=== PATIENT | female | born 1980 | race Caucasian/White ===

== ENCOUNTER 2017-01-28 00:17 | Day surgery (SDC) | payer OTHER ==
[2017-01-28] VITALS (7 sets, daily range): BP systolic 96–121; BP diastolic 54–68; PULSE 50–67; RESP 16; O2SAT 95–96
[~2017-01-28] VITALS: Ht 165.1 cm; Wt 86.0 kg
[~2017-01-28 00:17] MED LIST: ACET-171 PO; BUPR1FIL3 SL; ESTR2TAB2 PO; PEDI1TAB52 PO; VENL75CA95 PO
[2017-01-28] MEDS ORDERED: levoFLOXacin 500 mg/100 mL D5W Premix IV ONE (11:23)
[2017-01-28] MEDS ORDERED: Heparin 5,000 Units/500 mL NS Premix IV ONE (11:27)
[2017-01-28] MEDS ORDERED: levoFLOXacin Inj 500 MG in IV Premix 1 EACH IV SCH (11:32)
[2017-01-28] MEDS ORDERED: fentaNYL-PF 50 mCg/mL 2 mL Inj ONE (11:50)
--- NOTE | 2017-01-28 13:24 | DRSVH ---
PROCEDURE: NEPHROSTOMY TUBE EXCHANGE 1. Right nephrostomy tube replacement. 2. Right antegrade pyelogram. 3. Conscious sedation for 30 minutes. INDICATIONS: OBSTRUCTION TECHNIQUE: The indications, alternatives, benefits, risks, and complications of the procedure were e xplained to the patient and any family members present. Informed written consent was obtained and pl aced in the chart. The patient was brought to the angiography suite. Conscious sedation was adminis tered intravenously by alf staff, with continuous cardiorespiratory monitoring. The patient was placed in the prone position on the angiography table. The back and existing tube wa s prepped and draped in a sterile fashion, with 1% lidocaine used for local anaesthesia. The existing tube was cut at the hub, and another 35 wire was advanced into the renal collecting system. The tube was removed, and a new 8 [place]ian locking pigtail drain was advanced under fluoroscopy into the renal collecting system. The catheter was pigtailed in the renal pelvis and locked. A small amount of cont rast was injected through the nephrostomy catheter. Catheter was secured to the skin surface. The patient was stable during the course of the procedure. FLUOROSCOPY TIME: 0.7 minutes. COMPARISON: [facility], XA, NEPHROSTOMY TUBE EXCHANGE, 09/09/2016, 12:34. FINDINGS: At the conclusion of the procedure, the pigtail catheter is within the renal pelvis. IMPRESSION: Successful replacement of a right nephrostomy tube without complication. Dictated by: Janay Ruiz M.D. on 01/28/2017 at 13:21 Approved by: Janay Ruiz M.D. on 01/28/2017 at 13:23
--- NOTE | 2017-01-28 14:10 | NUR ---
Pt discharged to home, ambulatory, accompanied by spouse. Pt's VSS, Rt nephrostomy tube draining clear yellow urine, IV discontinued intact. Pt given all discharge instructions and had no further questions at time of d/c.
== END 2017-01-28 23:59 | disposition home or self-care (01) ==
LOC: SOUO 00:17
PROVIDERS: ATTEND Radiology Vascular & Interventional Radiology
DX: N13.30 Unspecified hydronephrosis (principal); C53.9 Malignant neoplasm of cervix uteri, unspecified; Z87.440 Personal history of urinary (tract) infections
CPT/HCPCS: 50435; 75984; 99152; C1729; C1769; J1644; J2250; J3010; Q9967

== ENCOUNTER → 2017-06-09 | Day surgery (SDC) | payer MEDICARE ==
[2017-06-03 10:22] VITALS: BP 106/62; PULSE 63; RESP 16; O2SAT 96
--- NOTE | 2017-06-03 11:43 | NUR ---
Pt's procedure cancelled and rescheduled for next week, IV discontinued intact.
[~2017-06-09] VITALS: Ht 166.4 cm; Wt 76.8 kg
[~2017-06-09] MED LIST changes: -ACET-171 PO; +Heparin 10,000 Unit/1,000 mL NS Premix IV ONE; +fentaNYL-PF 50 mCg/mL 2 mL Inj ONE
[2017-06-09 08:34] VITALS: BP 115/64; PULSE 70; RESP 18; O2SAT 96
[2017-06-09 09:40] VITALS: BP 102/43; PULSE 66; RESP 18; O2SAT 98
[2017-06-09 09:45] VITALS: BP 121/62; PULSE 54; RESP 18; O2SAT 98
[2017-06-09 09:50] VITALS: BP 116/65; PULSE 60; RESP 18; O2SAT 98
[2017-06-09 10:00] VITALS: BP 115/78; PULSE 61; RESP 18; O2SAT 99
[2017-06-09 10:30] VITALS: BP 117/67; PULSE 55; RESP 18; O2SAT 97
--- NOTE | 2017-06-09 10:46 | DRSVH ---
PROCEDURE: NEPHROSTOMY TUBE EXCHANGE 1. Right nephrostomy tube replacement. 2. Right antegrade pyelogram. 3. Conscious sedation for 15 minutes. INDICATIONS: Tube exchange of existing catheter. TECHNIQUE: The indications, alternatives, benefits, risks, and complications of the procedure were e xplained to the patient. Informed written consent was obtained and placed in the chart. The patient was brought to the angiography suite. Conscious sedation was administered intravenously by skilled n ursing staff, with continuous cardiorespiratory monitoring. The patient was placed in the oblique position on the angiography table. The back was prepped and dr aped in a sterile fashion, with 1% lidocaine used for local anaesthesia. Contrast was injected into t he existing catheter for antegrade pyelogram. An 035 wire was advanced through the existing tube, and the tube was removed. A new 8 [place]alese locking pigtail drain was advanced with the tip in the renal co llecting system. Fluoroscopy confirmed the location of the tube. The patient was stable during the course of the procedure. FLUOROSCOPY TIME: 0.3 minutes. COMPARISON: [facility], XA, NEPHROSTOMY TUBE EXCHANGE, 01/28/2017, 11:51. FINDINGS: Final spot fluoroscopic image demonstrates an appropriately placed right nephrostomy tube catheter. IMPRESSION: Successfully replaced right nephrostomy tube catheter. Dictated by: Janay Ruiz M.D. on 06/09/2017 at 10:42 Approved by: Janay Ruiz M.D. on 06/09/2017 at 10:44
--- NOTE | 2017-06-09 11:00 | NUR ---
Discharge instructions reviewed with patient. No complaints post. Pt's nephrostomy tube capped at end of procedure.She states that she keeps it capped during the day and drains at night. Additional bag and end caps along with extension tubing given to patient and I demonstrated to her how to apply.
--- NOTE | 2017-06-09 12:22 | NUR ---
Patient reports that stopcock area leaking at home.She attached a nephrostomy bag but still leaking.I informed her to come back to dept.On exam, catheter/ stopcock area/ needless connector are not leaking.I attached tube to bag to drain, small amount of urine returned to bag but patient had also drained at home. Dr Ruiz notified, no further orders. Pt stopped draing urine, bag disconnected and all of nephrostomy tube and connections remain dry. Pt sent home.
--- NOTE | 2017-06-09 15:19 | NUR ---
Pt returned because of leaking from nephrostomy tube. Dr Ruiz examined the site which on admit is no longer leaking. No further intervention to do at this time. Pt instructed that if it continues to leak during the night to call the [facility] in the morning so that tube can be replaced.
== END | disposition home or self-care (01) ==
LOC: SOUO 06-03 00:33
PROVIDERS: ATTEND Radiology Vascular & Interventional Radiology
DX: Z43.6 Encounter for attention to other artificial openings of urinary tract (principal); N13.30 Unspecified hydronephrosis; Z87.440 Personal history of urinary (tract) infections; Z85.41 Personal history of malignant neoplasm of cervix uteri; Z85.54 Personal history of malignant neoplasm of ureter; Z85.51 Personal history of malignant neoplasm of bladder; Z92.21 Personal history of antineoplastic chemotherapy; Z93.3 Colostomy status; Z90.710 Acquired absence of both cervix and uterus; N18.3 Chronic kidney disease, stage 3 (moderate); Z87.891 Personal history of nicotine dependence
CPT/HCPCS: 50435; 75984; 99152; C1729; C1769; J1644; J2250; J3010; Q9967